=== PATIENT | male | born 1935 | race Caucasian/White ===

== ENCOUNTER 2017-01-02 22:48 | Inpatient (IN) | payer OTHER ==
[~2017-01-02] VITALS: Ht 175.3 cm; Wt 120.0 kg
[~2017-01-02 22:48] MED LIST: ALLO100T PO; APR25 PO; ASPI81TA28 PO; CHOL100010 PO; CLON0.3D4 TD; DOXA2TAB PO; FOLI1TAB7 PO; FURO40TA3 PO; INSDGIPEN SC; IPRA1AER2 INH; LPT/40 PO; METO100T7 PO; PARI1CAP5 PO; SITA50TA PO
--- NOTE | 2017-01-02 23:16 | EMERGENCY ROOM VISIT NOTE ---
History Report prepared by Sonaliibmontserrat: Lorne Omalley Under the Supervision of: Dr. Henry Collins D.O. First contact with patient: 23:07 Chief Complaint: ILLNESS Stated Complaint: FEVER, DIZZY, SHAKEY History of Present Illness The patient is an 81 year old male who presents to the Emergency Room with complaints of an acute fever that started approximately 3 hours STITCHER UTILITY. The patient was feeling great all day until his symptoms started suddenly, which include fever, chills, and shaking. The patient has also had rhinorrhea recently and was feeling nauseous today which he attributes to indigestion. The patient denies chest pain, coughing, abdominal pain, vomiting, burning with urination, or rashes. He was immunized for flu this year. The patient has a history of pneumonia and kidney disease, as per a family member. He is diabetic and his BSG was 200 when checked after the onset of his symptoms. Source of History: patient, family Onset: 3 hours STITCHER UTILITY Position: other (global) Quality: other (febrile) Timing: other (acute) Associated Symptoms: + chills, + nausea, No abdominal pain, No chest pain, No cough, No rash, No urinary symptoms, No vomiting Review of Systems See HPI for pertinent positives and negatives. A total of ten systems were reviewed and were otherwise negative. Past Medical & Surgical Medical Problems: (1) Chronic kidney disease (2) COPD (chronic obstructive pulmonary disease) (3) DM (diabetes mellitus) (4) HTN (hypertension) Surgical Problems: (1) History of cholecystectomy Family History Patient reports no known family medical history. Social History Smoking Status: Never Smoker Alcohol Use: none Marital Status: Housing Status: lives with family Current/Historical Medications Scheduled Allopurinol (Zyloprim), 100 MG PO BID Aspirin (Aspirin Ec), 81 MG PO DAILY Atorvastatin (Atorvastatin Calcium), 10 MG PO DAILY Calcitriol (Calcitriol), 0.25 MCG PO Q2D Cholecalciferol (Vitamin D3), 1 CAP PO DAILY Clonidine Hcl (Kzyssjmo-Plz-2), 1 PATCH TD WK Doxazosin Mesylate (Cardura), 2 MG PO HS Folic Acid (Folvite), 1 MG PO BID Furosemide (Lasix), 40 MG PO BID Hydralazine HCl (Hydralazine HCl), 50 MG PO TID Insulin Glargine (Lantus Solostar), 20 UNIT SC QAM Metoprolol Succinate (Toprol Xl), 100 MG PO DAILY Sitagliptin Phosphate (Januvia), 50 MG PO DAILY Allergies Coded Allergies: No Known Allergies (Unverified , 01/03/17) Physical Exam Vital Signs Date Time Temp Pulse Resp B/P Pulse Ox O2 Delivery O2 Flow Rate FiO2 01/03/17 00:19 106 20 117/63 93 Room Air 01/02/17 23:45 101 01/02/17 23:44 92 Room Air 01/02/17 22:52 37.6 102 16 154/70 92 Room Air Physical Exam GENERAL: Awake, alert, well-appearing, in no distress HENT: Normocephalic, atraumatic. Oropharynx unremarkable. EYES: Normal conjunctiva. Sclera non-icteric. NECK: Supple. No nuchal rigidity. FROM. No JVD. RESPIRATORY: Clear to auscultation. CARDIAC: Regular rate, normal rhythm. Extremities warm and well perfused. Pulses equal. ABDOMEN: Soft, non-distended. No tenderness to palpation. No rebound or guarding. No masses. RECTAL: Deferred. MUSCULOSKELETAL: Chest examination reveals no tenderness. The back is symmetrical on inspection without obvious abnormality. There is no CVA tenderness to palpation. No joint edema. LOWER EXTREMITIES: Calves are equal size bilaterally and non-tender. No edema. No discoloration. NEURO: Normal sensorium. No sensory or motor deficits noted. SKIN: No rash or jaundice noted. Medical Decision & Procedures ER Provider Diagnostic Interpretation: X ray results as stated below per my interpretation. CHEST ONE VIEW PORTABLE: Slight increased markings bilaterally, no obvious infiltrate or effusion. Laboratory Results 01/02/17 23:30 Red Blood Count 4.68, Mean Corpuscular Volume 98.1, Mean Corpuscular Hemoglobin 34.2, Mean Corpuscular Hemoglobin Concent 34.9, Mean Platelet Volume 10.9, Neutrophils (%) (Auto) 84.5, Lymphocytes (%) (Auto) 8.0, Monocytes (%) (Auto) 6.7, Eosinophils (%) (Auto) 0.3, Basophils (%) (Auto) 0.2, Neutrophils # (Auto) 9.64, Lymphocytes # (Auto) 0.92, Monocytes # (Auto) 0.77, Eosinophils # (Auto) 0.04, Basophils # (Auto) 0.02 01/02/17 23:30 Test 01/02/17 23:05 01/02/17 23:30 01/02/17 23:38 Urine Color YELLOW Urine Appearance CLEAR (CLEAR) Urine pH 5.0 (4.5-7.5) Urine Specific [place] 1.008 (1.000-1.030) Urine Protein NEG (NEG) Urine Glucose (UA) 1+ (NEG) Urine Ketones NEG (NEG) Urine Occult Blood NEG (NEG) Urine Nitrite NEG (NEG) Urine Bilirubin NEG (NEG) Urine Urobilinogen NEG (NEG) Urine Leukocyte Esterase NEG (NEG) White Blood Count 11.43 K/uL (4.8-10.8) Red Blood Count 4.68 M/uL (4.7-6.1) Hemoglobin 16.0 g/dL (14.0-18.0) Hematocrit 45.9 % (42-52) Mean Corpuscular Volume 98.1 fL (80-100) Mean Corpuscular Hemoglobin 34.2 pg (25-34) Mean Corpuscular Hemoglobin Concent 34.9 g/dl (32-36) Platelet Count 131 K/uL (130-400) Mean Platelet Volume 10.9 fL (7.4-10.4) Neutrophils (%) (Auto) 84.5 % Lymphocytes (%) (Auto) 8.0 % Monocytes (%) (Auto) 6.7 % Eosinophils (%) (Auto) 0.3 % Basophils (%) (Auto) 0.2 % Neutrophils # (Auto) 9.64 K/uL (1.4-6.5) Lymphocytes # (Auto) 0.92 K/uL (1.2-3.4) Monocytes # (Auto) 0.77 K/uL (0.11-0.59) Eosinophils # (Auto) 0.04 K/uL (0-0.5) Basophils # (Auto) 0.02 K/uL (0-0.2) RDW Standard Deviation 49.7 fL (36.4-46.3) RDW Coefficient of Variation 14.0 % (11.5-14.5) Immature Granulocyte % (Auto) 0.3 % Immature Granulocyte # (Auto) 0.04 K/uL (0.00-0.02) Anion Gap 10.0 mmol/L (3-11) Est Creatinine Clear Calc Drug Dose 33.1 ml/min Estimated GFR () 31.2 Estimated GFR (Non- 26.9 BUN/Creatinine Ratio 18.4 (10-20) Calcium Level 9.1 mg/dl (8.5-10.1) Total Bilirubin 0.8 mg/dl (0.2-1) Direct Bilirubin 0.2 mg/dl (0-0.2) Aspartate Amino Transf (AST/SGOT) 17 U/L (15-37) Alanine Aminotransferase (ALT/SGPT) 33 U/L (12-78) Alkaline Phosphatase 92 U/L (45-117) Total Protein 7.5 gm/dl (6.4-8.2) Albumin 3.7 gm/dl (3.4-5.0) Bedside Lactic Acid Venous 1.83 mmol/L (0.90-1.70) Laboratory results reviewed by me Medications Administered Medications (Trade) Dose Ordered Sig/Chio Route Start Time Stop Time Status Last Admin Dose Admin Ceftriaxone Sodium (Rocephin Inj) 1 gm NOW STAT IV 01/03/17 00:44 01/03/17 00:46 DC 01/03/17 00:54 1 GM ECG Indication: other Rate (beats per minute): 100 Rhythm: normal sinus Findings: RBBB, no acute ischemic change, other (normal axis) ED Course 2306: The patient was evaluated in room A10. A complete history and physical exam was performed. 0040: Reassessed the patient. Discussed the findings with her. 0044: Rocephin 1 gm IV. 0045: Azithromycin 500 mg / dextrose 255 ml @ 125 mls/hr. 0056: Discussed the case with Jaye Granados Hospitalist. The patient will be evaluated. Medical Decision Etiologies such as viral syndrome, otitis, pharyngitis, pneumonia, urinary tract infection, sepsis, bacteremia, meningitis, as well as others were entertained. Patient on reexamination complaints of weakness he slightly tachycardic with heart rate of 107 his pulse ox is 92%. I suspect that he may have early pneumonia there is a slight increased right lower lobe infiltrate. I have sent blood cultures I have started him on Rocephin and Zithromax. I did speak to the hospitalist for admission and the family + Consults Time Called: 49 Consulting Physician: Rae Granados [facility] Returned Call: [phone]: Discussed the case with Rae Granados [facility]. The patient will be evaluated. Impression Primary Impression: Pneumonia Scribe Attestation The scribe's documentation has been prepared under my direction and personally reviewed by me in its entirety. I confirm that the note above accurately reflects all work, treatment, procedures, and medical decision making performed by me. Departure Information Dispostion Being Evaluated By Hospitalist Referrals Tamar Lam M.D. (PCP) Patient Instructions My [facility] Problem Qualifiers Primary Impression: Pneumonia Pneumonia type: due to unspecified organism Laterality: right Lung location : lower lobe of lung Qualified Codes: J18.1 - Lobar pneumonia, unspecified organism
[2017-01-02 23:20] LABS: URINE APPEARANCE CLEAR (CLEAR); URINE BILIRUBIN NEG (NEG); URINE COLOR YELLOW; URINE NITRITE NEG (NEG); URINE SPECIFIC GRAVITY 1.008 (1.000-1.030); UROBILINOGEN NEG (NEG)
[2017-01-02 23:22] LABS: MANUAL MICROSCOPIC REQUIRED? NO; REVIEW REQ? NO
[2017-01-03 00:02] LABS: BASO % 0.2 %; BASO ABS # 0.02 K/uL (0-0.2); COMPLETE YES; EOS % 0.3 %; HEMATOCRIT 45.9 % (42-52); IG% 0.3 %; LYMPH ABS # 0.92 K/uL (1.2-3.4); MEAN CELL VOLUME 98.1 fL (80-100); MEAN CORPUSCULAR HEMOGLOBIN 34.2 pg (25-34); MEAN CORPUSCULAR HGB CONC 34.9 g/dl (32-36); MEAN PLATELET VOLUME 10.9 fL (7.4-10.4); MONO % 6.7 %; NEUT % 84.5 %; PLATELET COUNT 131 K/uL (130-400); RED BLOOD COUNT 4.68 M/uL (4.7-6.1); WHITE BLOOD COUNT 11.43 K/uL (4.8-10.8)
[2017-01-03] MEDS ORDERED: CHOL2000 PO (00:11)
[2017-01-03] MEDS ORDERED: CALC1CAP36 PO (00:12)
[2017-01-03] MEDS ORDERED: LPT10 PO (00:12)
[2017-01-03] MEDS ORDERED: APR50 PO (00:15)
[2017-01-03 00:23] LABS: BUN/CREATININE RATIO 18.4 (10-20); CALCIUM 9.1 mg/dl (8.5-10.1); CREATININE 2.2 mg/dl (0.60-1.40)
[2017-01-03] MEDS ORDERED: CEFTRIAXONE SOD INJ 1 GM ADDVIAL IV STA (00:44)
[2017-01-03] MEDS ORDERED: AZITHROMYCIN IV 500 MG in DEXTROSE 5% 250ML 250 ML IV ONE (00:45)
[2017-01-03] MEDS ORDERED: ONDANSETRON INJ 2 MG/ML 2 ML VIAL IV PRN (01:30)
[2017-01-03] MEDS ORDERED: ACETAMINOPHEN 325 MG TAB PO PRN (01:30)
[2017-01-03] MEDS ORDERED: IV FLUIDS COMPLETED PRN (01:45)
[2017-01-03 02:37] VITALS: BP 141/67; PULSE 110; TEMP 37.9; O2SAT 93; Ht 175.3 cm; Wt 120.0 kg
[2017-01-03] MEDS: SODIUM CHLORIDE 0.9% 1000ML 1,000 ML IV SCH ×2 (03:08→11:22)
--- NOTE | 2017-01-03 03:22 | HISTORY & PHYSICAL EXAMINATION ---
DATE OF ADMISSION: 01/02/2017 PRIMARY CARE PHYSICIAN: Dr. Lam. CHIEF COMPLAINT: Sudden shaking chills with dizziness and sweating. HISTORY OF PRESENT COMPLAINT: He is an 81-year-old male with significant past medical history including chronic kidney disease, diastolic CHF, hyperlipidemia, hypertension, type 2 diabetes and also mild aortic stenosis, apparently has been complaining of sudden onset of chills with feeling of hot and dizziness, started around 7:00-7:30 this evening. He denies to have any cough, any increasing shortness of breath before that. He does not have any abdominal pain, nausea or vomiting, does not have any problem with urine and/or bowel habit. With the onset of the symptoms of dizziness and increased chills and shakiness, he mentioned that he has not been feeling well since then but no other symptoms. No headache, no blurred vision, no numbness or tingling in the extremities and does not have any weakness involving any side of the body. PAST MEDICAL HISTORY: Significant for chronic kidney disease, history of diastolic CHF, hypertension, hyperlipidemia, type 2 diabetes and mild aortic stenosis. PAST SURGICAL HISTORY: Significant for cataract surgery but no other significant surgery. FAMILY HISTORY: Nothing significant. SOCIAL HISTORY: He is . He quit smoking on 10/24/1987. He does not use any alcohol. He lives with his . ALLERGIES: NKDA. MEDICATIONS: As an outpatient, he has been on furosemide 40 mg twice daily, Januvia 50 mg daily, allopurinol 100 mg b.i.d., aspirin 81 mg daily, atorvastatin 10 mg daily, calcitriol 0.25 mcg daily, vitamin D3 2000 units daily, clonidine patch 0.3 mg 1 patch every week, doxazosin 2 mg at night, folic acid 1 mg daily, hydralazine 50 mg t.i.d., insulin Lantus 20 units subQ in the morning and metoprolol succinate 100 mg daily. REVIEW OF SYSTEMS: Other systemic review unremarkable except mentioned in H\T\P. PHYSICAL EXAMINATION: GENERAL: On examination in the Emergency Room, he was feeling very hot and shaky, otherwise in no distress. VITAL SIGNS: Temperature 37.6, pulse of 102, blood pressure 117/63, saturation 92% on room air. HEENT: Unremarkable. NECK: Supple. No JVD, no bruit. CHEST: Otherwise clear. Probable bronchial breath sounds in the left base. HEART: S1, S2 with 2/6 systolic murmur over the aortic area, radiation to the neck. ABDOMEN: Distended, soft, benign, nontender, no organomegaly. Bowel sounds present. EXTREMITIES: He has chronic edema but nothing changed. CENTRAL NERVOUS SYSTEM: He was alert, awake, oriented x3. No focal sensory and/or motor deficit appreciated. LABORATORY DATA: Noted today, white count was 11.43, H\T\H of 16.0/45.9, platelet was 131. Sodium 141, potassium 4.0, chloride 102, carbon dioxide 29, BUN 41, creatinine 2.2, random glucose 175. LFTs unremarkable. Albumin was 3.7. His creatinine seems to be at baseline. EKG was in sinus rhythm, rate of 100 per minute, normal axis, right bundle branch block with associated ST-T wave changes. Compared with prior EKG, no significant change. Chest x-ray did not show any obvious infiltration but may have developing left basilar infiltrate. IMPRESSION AND PLAN: 1. Sudden onset of fever with chills, may have pneumonia. White count is borderline high. The patient will be admitted to medical floor on observation. Blood culture, urine culture have been taken and he was started with intravenous ceftriaxone and azithromycin. We will continue that for the time being. We will give small amount of IV fluid. 2. Diabetes type 2. He has been on Januvia and insulin. We will hold the Januvia and put him on sliding scale coverage and check hemoglobin A1c. 3. Hypertension. Blood pressure seems to be stable at this time. Continue current medications for the blood pressure. 4. Hyperlipidemia. Continue with atorvastatin. 5. Mild aortic stenosis. No evidence of any acute symptoms at this time. Again, cautious amount of IV fluid for now. 6. Chronic kidney disease. The creatinine seems to be stable. We will hold his Lasix and again give a small amount of IV fluid. He may have mild dehydration. 7. Deep venous thrombosis prophylaxis with subQ heparin. 8. Gastrointestinal prophylaxis with Protonix. 9. Code status. Discussed with the patient and family members. He will be level 3, that is resuscitation without mechanical ventilation. 10. In my clinical judgment, the beneficiary meets criteria as per CMS for 2-midnight stay in the hospital. VIVIANA
--- NOTE | 2017-01-03 06:24 | DIAGNOSTIC IMAGING REPORT ---
CHEST ONE VIEW PORTABLE CLINICAL HISTORY: Evaluate Fever/Sepsis fever COMPARISON STUDY: 01/13/2015 FINDINGS: Mild pulmonary vascular congestion. Mild cardiomegaly. Diaphragms smooth. There are no focal infiltrates. IMPRESSION: Pulmonary venous congestion. Electronically signed by: Lavon Gupta M.D. 01/03/2017 6:23 AM Dictated Date/Time: 01/03/2017 6:23 AM
[2017-01-03 07:10] LABS: INR 1.1 (0.9-1.1); PROTHROMBIN TIME (PATIENT) 11.3 SECONDS (9.0-12.0)
[2017-01-03 07:20] VITALS: BP 120/67; PULSE 88; TEMP 37.4; O2SAT 94
[2017-01-03 08:00] VITALS: O2SAT 94
[2017-01-03] MEDS: CHECK CLONIDINE PATCH PLACEMENT SCH ×3 (08:12→22:54)
[2017-01-03] MEDS: ATORVASTATIN 10 MG TAB PO SCH (08:14)
[2017-01-03] MEDS: METOPROLOL SUCC 50MG EXT REL TAB PO SCH (08:14)
[2017-01-03] MEDS: CHOLECALCIFEROL 1000 INTER.UNIT TAB PO SCH (08:14)
[2017-01-03] MEDS: ASPIRIN 81 MG ECTAB PO SCH (08:14)
[2017-01-03] MEDS: ALLOPURINOL 100 MG TAB PO SCH ×2 (08:14→21:41)
[2017-01-03] MEDS: INSULIN GLARGINE SOLOSTAR 100 UNITS/ML 3 ML PEN SC SCH (08:17)
[2017-01-03] MEDS: HEPARIN SOD 5000 UNIT/0.5 ML CARP SQ SCH ×3 (08:18→21:40)
[2017-01-03] MEDS ORDERED: VANCOMYCIN CONSULT ACTIVE PRN (14:55)
--- NOTE | 2017-01-03 14:57 | Progress Note ---
Progress Note Date of Service Jan 03, 2017. Progress Note Patient was seen and evaluated today. Admitted in AM for an episode of chills, subjective fever yesterday around 4 pm. No associated symptoms- no chest pain, SOB, cough, abd pain, nausea, vomiting, diarrhea, leg swelling, headaches. No lines in situ, no foreign bodies. No flu like symptoms. Today, feels good and no symptoms On exam, AAOX3; No distress, Lungs- clear, Heart- S1, S2 normal, Systolic murmur +, Abdomen- soft, non tender, non distended, BS present, Ext- no edema Low grade fever 37.9 C, HR 100s, Labs - WBC 11k CXR - no focal infiltrates, UA- neg, no recent hospitalizations; blood cx x 2 just came back positive for GPC A/P: Bacteremia (Gm positive cocci)- Unclear source. Asymptomatic. No symptoms other than chills x 1 yesterday evening. -On basis of detailed H & P and imaging- no source identified -Has murmur--> will order Echocardiogram to look for vegetation, but no risk factors for endocarditis identified -Discontinue IV Rocephin/Azithromycin as clearly no signs/symptoms of pneumonia and cxr- no focal infiltrate. -Will start on IV Vancomycin -Repeat Blood cx in 1-2 days Discussed with , niece by bedside,
[2017-01-03] MEDS ORDERED: VANCOMYCIN INJ 2,700 MG in SODIUM CHLORIDE 0.9% 500ML 500 ML IV ONE (15:30)
[2017-01-03 15:56] VITALS: BP 134/71; PULSE 82; TEMP 36.8; O2SAT 94
[2017-01-03 16:00] VITALS: O2SAT 96
--- NOTE | 2017-01-03 16:09 | Pharmacy Progress Note ---
Pharmacy Antibiotic Consult Date of Service: Jan 03, 2017. Pharmacy Dosing Scope Pharmacy is consulted to initiate Vanco IV dosing therapy, order appropriate labs and adjust drug dose/frequency. Subjective The patient is a 81 year old male admitted on Jan 03, 2017 at 06:20. Objective Height (Feet): 5 Height (Inches): 9.00 Weight (Kilograms): 120.000 Lab Results (24hrs): Item Value Date Time Creatinine 2.20 mg/dl H 01/02/172329 Est Creatinine Clear Calc Drug Dose 33.1 ml/min 01/02/172329 Laboratory Tests Test 01/02/17 23:30 01/03/17 15:05 BUN/Creatinine Ratio 18.4 Blood Urea Nitrogen 41 mg/dl Creatinine 2.20 mg/dl White Blood Count 11.43 K/uL Red Blood Count 4.68 M/uL Hemoglobin 16.0 g/dL Hematocrit 45.9 % Mean Corpuscular Volume 98.1 fL Mean Corpuscular Hemoglobin 34.2 pg Mean Corpuscular Hemoglobin Concent 34.9 g/dl Platelet Count 131 K/uL Mean Platelet Volume 10.9 fL Neutrophils (%) (Auto) 84.5 % Lymphocytes (%) (Auto) 8.0 % Monocytes (%) (Auto) 6.7 % Eosinophils (%) (Auto) 0.3 % Basophils (%) (Auto) 0.2 % Neutrophils # (Auto) 9.64 K/uL Lymphocytes # (Auto) 0.92 K/uL Monocytes # (Auto) 0.77 K/uL Eosinophils # (Auto) 0.04 K/uL Basophils # (Auto) 0.02 K/uL Micro Results: RUN DATE: 01/03/17 [facility] LAB PAGE 1 RUN TIME: 1353 Specimen Inquiry PATIENT: BERTHA DANIELS LOC: [id number] U # : [id number] AGE/SX: 81/M ROOM: [facility] REG : 01/03/[address]: Pooja. [place] S : 1935 BED: 2 DIS : STATUS: ADM IN TLOC: SPEC #: [id number] JAMES: 01/02/17 STATUS: RES REQ #: [id number] RECD: 01/02/[address]: Henry Collins DO SOURCE: BLOOD ENTR: 01/02/17-23[address] [facility] [address]: Tamar Lam M.D. SPDC: ORDERED: BLOOD CULTURE COMMENTS: Comments to Special Needs Nanny SAME TIME DIFFERENT SITES Procedure Result Verified Site BLD CULT Preliminary 01/03/17-1353 Organism 1 GRAM POSITIVE COCCI SENS SENSITIVITIES DEPENDENT ON FURTHER IDENTIFICATION Phoned Positive Blood Culture Gram Stain Report to LYDIA LAURENT on 01/03/17 At 1252 By SLOANE. Results were verbalized back to SLOANE. Item Value Date Time Blood Culture - Preliminary Resulted 01/02/17 2340 Blood Gram Positive Cocci Blood Culture - Preliminary Resulted 01/02/17 2330 Blood Gram Positive Cocci Recent Pertinent Medications Pt was recently on Rocephin and IV Azithromycin Assessment & Plan Pt is an 81yo M being switched from IV Azithromycin/Rocephin to IV Vanco for 2/ 2 BC's growing Gram(+) cocci. With susceptibilities pending. Pt has a PMH positive for CKD, DM-II, and aortic stenosis. Pt p/w 4/4 SIRS criteria. Pt is still febrile w/ CBC pending. HR/RR WNL today. Currently, Pt has only one major Modified Jerez Criteria risk factor for endocarditis (positive blood cx's for potential typical organisms) and two minor (predisposing heart condition and Temp > 38C). Vanco * Loading dose: Vanco 2700mg (22.5mg/kg) IV X 1 dose at 1530 then: * Vanco 1750mg (~15mg/kg) IV every 24 hours. Set to start 01/04 at 0800. At this point in time, I feel comfortable dosing him slightly aggressively due to the potential for endocarditis and him having confirmed bacteremia. * Goal trough level estimate: between 15 - 20 mcg/mL, appropriate for confirmed bacteremia. * Trough level has been ordered for: prior to the third MD. Thank you for consulting the pharmacy kinetic team and including us in the care of Mr. Daniels Pharmacy will continue to follow and will adjust dose/frequency as necessary. Thank you
[2017-01-03 16:10] LABS: CREATININE 2.3 mg/dl (0.60-1.40)
[2017-01-03] MEDS ORDERED: VANCOMYCIN INJ 1,000 MG in SODIUM CHLORIDE 0.9% 250ML 250 ML IV SCH (21:00)
[2017-01-03] MEDS: DOXAZosin MESYLATE TAB 2 MG TAB PO SCH ×2 (21:42→22:54)
[2017-01-04 00:29] VITALS: BP 114/66; PULSE 82; TEMP 36.8; O2SAT 94
[2017-01-04] MEDS ORDERED: CEFTRIAXONE SOD INJ 1,000 MG in DEXTROSE 5% 50ML 50 ML IV SCH (06:00)
[2017-01-04] MEDS: HEPARIN SOD 5000 UNIT/0.5 ML CARP SQ SCH ×3 (06:06→21:30)
[2017-01-04 07:05] LABS: HEMATOCRIT 39.5 % (42-52); MEAN CELL VOLUME 97.1 fL (80-100); MEAN CORPUSCULAR HEMOGLOBIN 32.9 pg (25-34); MEAN CORPUSCULAR HGB CONC 33.9 g/dl (32-36); MEAN PLATELET VOLUME 10.6 fL (7.4-10.4); PLATELET COUNT 113 K/uL (130-400); RED BLOOD COUNT 4.07 M/uL (4.7-6.1); WHITE BLOOD COUNT 8.94 K/uL (4.8-10.8)
[2017-01-04 07:14] VITALS: BP 145/69; PULSE 71; TEMP 36.7; O2SAT 94
[2017-01-04 07:34] LABS: BUN/CREATININE RATIO 21.2 (10-20); CALCIUM 8.2 mg/dl (8.5-10.1); CREATININE 1.9 mg/dl (0.60-1.40)
[2017-01-04] MEDS ORDERED: AZITHROMYCIN IV 500 MG in DEXTROSE 5% 250ML 250 ML IV SCH (08:00)
[2017-01-04] MEDS ORDERED: VANCOMYCIN INJ 1,600 MG in SODIUM CHLORIDE 0.9% 500ML 500 ML IV SCH (08:00)
[2017-01-04] MEDS: CHECK CLONIDINE PATCH PLACEMENT SCH ×3 (08:00→23:58)
[2017-01-04] MEDS: ALLOPURINOL 100 MG TAB PO SCH ×2 (08:40→20:34)
[2017-01-04] MEDS: ASPIRIN 81 MG ECTAB PO SCH (08:40)
[2017-01-04] MEDS: CHOLECALCIFEROL 1000 INTER.UNIT TAB PO SCH (08:40)
[2017-01-04] MEDS: ATORVASTATIN 10 MG TAB PO SCH (08:41)
[2017-01-04] MEDS: METOPROLOL SUCC 50MG EXT REL TAB PO SCH (08:41)
[2017-01-04] MEDS: INSULIN GLARGINE SOLOSTAR 100 UNITS/ML 3 ML PEN SC SCH (08:42)
[2017-01-04] MEDS ORDERED: CALCITRIOL 0.25 MCG CAP PO SCH (09:00)
[2017-01-04] MEDS: VANCOMYCIN INJ 1,750 MG in SODIUM CHLORIDE 0.9% 500ML 500 ML IV SCH (09:50)
--- NOTE | 2017-01-04 11:35 | ECHOCARDIOGRAM REPORT ---
*NOTICE TO RECEIVING LIBERTARIAN AGENCY This information is strictly Confidential and protected under [place] law. [place] law prohibits you from making any further disclosure of this information unless further disclosure is expressly permitted by the written consent of the person to whom it pertains or is authorized by law. A general authorization for the release of medical or other information is not sufficient for this purpose. Hospital accepts no responsibility if the information is made available to any other person, INCLUDING THE PATIENT. Interpretation Summary * Name: BERTHA DANIELS Study Date: 01/03/2017 03:04 PM BP: 120/67 mmHg * Patient Location: [facility] HR: 88 * : 1935 (M/d/yyyy) Gender: Male Height: 69 in * Age: 81 yrs Ethnicity: CA Weight: 264 lb * Referring Physician: OSMIN * Performed By: Antonette Murguia RDCS * * Reason For Study: BACTEREMIA, LOOK FOR VEGETATIONS * BSA: 2.3 m2 * History: BACTEREMIA - LOOK FOR VEGETATIONS * -- Conclusions -- * No significant change compared to previous study of 01/11/15. * Normal LV chamber size with mild concentric LVH. * Normal LV systolic function, EF 55-60%. * Abnormal septal wall motion consistent with RV pressure/volume overload, otherwise, no segmental left ventricular wall motion abnormalities are noted. * Grade I diastolic dysfunction. * The right ventricular cavity size is enlarged (proximal parasternal long axis right ventricular outflow tract dimension >3.3 cm). * The right ventricular systolic function is normal as assessed by tricuspid annular plane systolic excursion (TAPSE) (normal >1.5 cm). * Moderately calcified aortic valve with mild stenosis. * Moderate to severe mitral annular calcification. * No valvular lesions consistent with endocarditis observed within the scope of this imaging modality. Procedure Details * A complete two-dimensional transthoracic echocardiogram was performed (2D, M-mode, Doppler and color flow Doppler). Left Ventricle * The left ventricle is normal in size. * There is mild concentric left ventricular hypertrophy. * Ejection Fraction = 55-60%. * Left ventricular systolic function is normal. * No segmental left ventricular wall motion abnormalities are noted. * The left ventricular wall motion is normal. Right Ventricle * The right ventricular cavity size is enlarged (proximal parasternal long axis right ventricular outflow tract dimension >3.3 cm). * The right ventricular systolic function is normal as assessed by tricuspid annular plane systolic excursion (TAPSE) (normal >1.5 cm). Atria * The left atrial size is normal. * Right atrial size is normal. * No ASD detected; PFO is not assessed. Mitral Valve * There is moderate to severe mitral annular calcification. * There is no mitral valve stenosis. * There is no mitral regurgitation noted. Tricuspid Valve * The tricuspid valve is normal in structure and function. Aortic Valve * The aortic valve is trileaflet. * Mild valvular aortic stenosis. * There is no significant aortic regurgitation. Pulmonic Valve * The pulmonary valve is not well seen, but the Doppler examination is normal without significant regurgitation or stenosis. Great Vessels * The aortic root is normal size. Pericardium/Pleural * There is no pericardial effusion. Left Ventricular Diastolic Function * Grade I diastolic dysfunction, (abnormal relaxation pattern). MMode 2D Measurements and Calculations IVSd 1.4 cm IVSs 1.9 cm LVIDd 4.6 cm LVIDs 3.2 cm LVPWd 1.6 cm LVPWs 1.4 cm IVS/LVPW 0.91 FS 29.8 % EDV(Teich) 95.2 ml ESV(Teich) 40.9 ml EF(Teich) 57.0 % EDV(cubed) 94.6 ml ESV(cubed) 32.7 ml EF(cubed) 65.4 % % IVS thick 28.5 % % LVPW thick -12.64 % LV mass(C)d 286.0 grams LV mass(C)dI 123.0 grams/m\S\2 LV mass(C)s 195.9 grams LV mass(C)sI 84.3 grams/m\S\2 SV(Teich) 54.3 ml SI(Teich) 23.4 ml/m\S\2 SV(cubed) 61.9 ml SI(cubed) 26.6 ml/m\S\2 LA dimension 3.6 cm LVOT diam 1.9 cm LVOT area 3.0 cm\S\2 LVAd ap4 31.3 cm\S\2 LVLd ap4 8.6 cm EDV(MOD-sp4) 92.3 ml EDV(sp4-el) 96.7 ml LVAs ap4 19.0 cm\S\2 LVLs ap4 7.5 cm ESV(MOD-sp4) 39.5 ml ESV(sp4-el) 40.5 ml EF(MOD-sp4) 57.2 % EF(sp4-el) 58.1 % LVAd ap2 29.2 cm\S\2 LVLd ap2 7.8 cm EDV(MOD-sp2) 94.4 ml EDV(sp2-el) 93.0 ml LVAs ap2 19.2 cm\S\2 LVLs ap2 6.8 cm ESV(MOD-sp2) 48.3 ml ESV(sp2-el) 45.7 ml EF(MOD-sp2) 48.9 % EF(sp2-el) 50.8 % LVLd %diff -10.25 % EDV(MOD-bp) 98.0 ml LVLs %diff -10.55 % ESV(MOD-bp) 45.3 ml EF(MOD-bp) 53.8 % SV(MOD-sp4) 52.8 ml SI(MOD-sp4) 22.7 ml/m\S\2 SV(MOD-sp2) 46.2 ml SI(MOD-sp2) 19.9 ml/m\S\2 SV(MOD-bp) 52.8 ml SI(MOD-bp) 22.7 ml/m\S\2 SV(sp4-el) 56.2 ml SI(sp4-el) 24.2 ml/m\S\2 SV(sp2-el) 47.3 ml SI(sp2-el) 20.3 ml/m\S\2 Doppler Measurements and Calculations MV E max augusto 134.0 cm/sec MV A max augusto 154.2 cm/sec MV E/A 0.87 MV dec time 0.23 sec Ao V2 max 267.4 cm/sec Ao max PG 28.6 mmHg Ao max PG (full) 25.3 mmHg Ao V2 mean 184.6 cm/sec Ao mean PG 15.4 mmHg Ao mean PG (full) 13.3 mmHg Ao V2 VTI 64.3 cm LAVERNE(I,A) 10 cm\S\2 LAVERNE(I,D) 10 cm\S\2 LAVERNE(V,A) 1.0 cm\S\2 LAVERNE(V,D) 1.0 cm\S\2 LV V1 max PG 3.3 mmHg LV V1 mean PG 2.1 mmHg LV V1 max 90.8 cm/sec LV V1 mean 69.5 cm/sec LV V1 VTI 21.8 cm SV(LVOT) 64.3 ml SI(LVOT) 27.7 ml/m\S\2 TR max augusto 254.5 cm/sec
[2017-01-04 16:00] VITALS: O2SAT 94
[2017-01-04 16:10] VITALS: BP 127/53; PULSE 80; TEMP 36.9; O2SAT 94
[2017-01-04] MEDS ORDERED: DEXTROSE 50% 50 ML SYR IV PRN (17:15)
[2017-01-04] MEDS ORDERED: GLUCAGON FOR INJ 1 MG VIAL SQ PRN (17:15)
[2017-01-04] MEDS ORDERED: GLUCOSE 40% GEL 15 GM TUBE PO PRN (17:15)
[2017-01-04] MEDS ORDERED: GLUCOSE 10 TABS/TUBE PO PRN (17:15)
--- NOTE | 2017-01-04 17:28 | Progress Note ---
Medicine Progress Note Date & Time of Visit: Jan 04, 2017 at 17:15. Subjective patient states he feels improved today denies fever/chills, weakness, headache, nausea denies cough, sputum, dyspnea, abdominal pain, changes with urination or bowel movement denies other symptoms Objective Last 8 Hrs Date Time Temp Pulse Resp B/P Pulse Ox O2 Delivery O2 Flow Rate FiO2 01/04/17 16:10 36.9 80 18 127/53 94 Room Air Physical Exam: General- oriented x 3, not in distress, speaks in sentences with no effort Head- atraumatic Eyes- anicteric Neck- supple, no JVD Lungs- clear to auscultation bilaterally, no rales/wheezes Heart- normal rate, regular rhythm; grade 2-3/6 holosystolic murmur Abdomen- normal bowel sounds, soft, nontender Extremities- no pretibial edema, no calf tenderness Neuro- alert, oriented x 3; no gross focal deficits Skin- warm & dry Laboratory Results: Last 24 Hours Test 01/04/17 06:24 01/04/17 07:03 01/04/17 11:10 White Blood Count 8.94 K/uL Red Blood Count 4.07 M/uL Hemoglobin 13.4 g/dL Hematocrit 39.5 % Mean Corpuscular Volume 97.1 fL Mean Corpuscular Hemoglobin 32.9 pg Mean Corpuscular Hemoglobin Concent 33.9 g/dl RDW Standard Deviation 50.7 fL RDW Coefficient of Variation 14.1 % Platelet Count 113 K/uL Mean Platelet Volume 10.6 fL Sodium Level 140 mmol/L Potassium Level 4.0 mmol/L Chloride Level 104 mmol/L Carbon Dioxide Level 28 mmol/L Anion Gap 8.0 mmol/L Blood Urea Nitrogen 40 mg/dl Creatinine 1.90 mg/dl Est Creatinine Clear Calc Drug Dose 38.3 ml/min Estimated GFR () 37.2 Estimated GFR (Non- 32.1 BUN/Creatinine Ratio 21.2 Random Glucose 105 mg/dl Calcium Level 8.2 mg/dl Bedside Glucose 102 mg/dl 160 mg/dl Date/Time Source Procedure Growth Status 01/04/17 16:48 Blood Blood Culture Pending Dae Batch 01/04/17 16:48 Blood Blood Culture Pending Dae Batch Assessment & Plan IMPRESSION AND PLAN: 1. Group B Strep bacteremia - afebrile, no leukocytosis clinically improved - TTE: no vegetations noted - repeat blood cultures 01/04/17 ordered -- Conclusions -- * No significant change compared to previous study of 01/11/15. * Normal LV chamber size with mild concentric LVH. * Normal LV systolic function, EF 55-60%. * Abnormal septal wall motion consistent with RV pressure/volume overload, otherwise, no segmental left ventricular wall motion abnormalities are noted. * Grade I diastolic dysfunction. * The right ventricular cavity size is enlarged (proximal parasternal long axis right ventricular outflow tract dimension >3.3 cm). * The right ventricular systolic function is normal as assessed by tricuspid annular plane systolic excursion (TAPSE) (normal >1.5 cm). * Moderately calcified aortic valve with mild stenosis. * Moderate to severe mitral annular calcification. -- continue IV Vancomycin Day 2 will consult ID 2. Diabetes type 2. - He has been on Januvia and insulin. - on Lantus 20 in AM add [facility] Pharm[facility] consulted 3. Hypertension. - stable 4. Hyperlipidemia. Continue with atorvastatin. 5. Mild aortic stenosis. No evidence of any acute symptoms at this time. Again, cautious amount of IV fluid for now. 6. CHF Diastolic Type Acute on Chronic kidney disease. - baseline crea 1.4 - admitted with crea 2.4--> now improving to 1.9 - no signs of overload gentle IV NSS 7. Deep venous thrombosis prophylaxis - with subQ heparin. 8. Gastrointestinal prophylaxis with Protonix. 9. Code status. Discussed with the patient and family members. He will be level 3, that is resuscitation without mechanical ventilation. Disposition pending anticipate d/c home when medically stable Current Inpatient Medications: Current Inpatient Medications Medications (Trade) Dose Ordered Sig/Chio Route Start Time Stop Time Status Last Admin Dose Admin Heparin Sodium (Porcine) (Heparin Sq 5000 Unit/0.5ml) 5,000 unit Q8 SQ 01/03/17 08:00 02/02/17 07:59 01/04/17 14:14 5,000 UNIT Acetaminophen (Tylenol Tab) 650 mg Q4H PRN PO 01/03/17 01:30 02/02/17 01:29 Ondansetron HCl (Zofran Inj) 4 mg Q6H PRN IV 01/03/17 01:30 02/02/17 01:29 Allopurinol (Zyloprim Tab) 100 mg BID PO 01/03/17 08:00 02/02/17 08:59 01/04/17 08:40 100 MG Aspirin (Ecotrin Tab) 81 mg DAILY PO 01/03/17 08:00 02/02/17 08:59 01/04/17 08:40 81 MG Atorvastatin Calcium (Lipitor Tab) 10 mg DAILY PO 01/03/17 08:00 02/02/17 08:59 01/04/17 08:41 10 MG Calcitriol (Rocaltrol Cap) 0.25 mcg Q2D PO 01/04/17 09:00 02/03/17 08:59 01/04/17 08:41 0.25 MCG Clonidine HCl (Fmdmhwuy-Tok-1 0.3mg/24hr Patch) 1 patch We@0900 TD 01/05/17 09:00 02/04/17 08:59 Doxazosin Mesylate (Cardura Tab) 2 mg HS PO 01/03/17 21:00 02/02/17 20:59 01/03/17 22:54 2 MG Folic Acid (Folvite Tab) 1 mg BID PO 01/03/17 08:00 02/02/17 08:59 01/04/17 08:41 1 MG Hydralazine HCl (Apresoline Tab) 50 mg TID PO 01/03/17 08:00 02/02/17 08:59 01/04/17 14:12 50 MG Insulin Glargine (Lantus Solostar Pen) 20 unit QAM SC 01/03/17 08:00 02/02/17 08:59 01/04/17 08:42 20 UNIT Metoprolol Succinate (Toprol Xl Tab) 100 mg DAILY PO 01/03/17 08:00 02/02/17 08:59 01/04/17 08:41 100 MG Cholecalciferol (Vitamin D Tab) 2,000 inter.unit DAILY PO 01/03/17 08:00 02/02/17 07:59 01/04/17 08:40 2,000 INTER.UNIT Miscellaneous (Remove Clonidine Patch) 1 ea We@0859 N/A 01/05/17 08:59 02/04/17 08:58 Miscellaneous Information (Check Clonidine Patch Placement) 1 ea QS N/A 01/03/17 08:00 02/02/17 07:59 01/04/17 08:00 1 EA Miscellaneous (Iv Fluids Completed) 1 ea PRN PRN N/A 01/03/17 01:45 01/03/18 01:44 Vancomycin HCl 1 ea 1 ea UD PRN N/A 01/03/17 14:55 02/02/17 14:54 Vancomycin HCl/ Sodium Chloride (Vancomycin Inj/ Nss 500ml) 535 ml @ 200 mls/hr DAILY@0800 IV 01/04/17 08:00 01/18/17 07:59 01/04/17 09:50 200 MLS/HR
[2017-01-04] MEDS ORDERED: SODIUM CHLORIDE 0.9% 1000ML 1,000 ML IV SCH (17:30)
[2017-01-04] MEDS ORDERED: PHARMACY GLYCEMIC MGMT CONSULT PRN (17:36)
--- NOTE | 2017-01-04 17:39 | Pharmacy Progress Note ---
Glycemic Control Intl Consult Date of Service Jan 04, 2017. Scope Glycemic Pharmacist consulted by Dr Drew on 01/04/2017 for glycemic control and to write orders per [facility] inpatient glycemic control protocol Objective Weight (Kilograms): 120.000 Accuchecks BSG (last 24hrs): Test 01/04/17 06:24 01/04/17 07:03 01/04/17 11:10 01/04/17 17:22 Random Glucose 105 mg/dl (70-99) Bedside Glucose 102 mg/dl (70-99) 160 mg/dl (70-99) 115 mg/dl (70-99) Laboratory Data (last 24hrs) Test 01/04/17 06:24 Anion Gap 8.0 mmol/L BUN/Creatinine Ratio 21.2 Blood Urea Nitrogen 40 mg/dl Creatinine 1.90 mg/dl Potassium Level 4.0 mmol/L Sodium Level 140 mmol/L White Blood Count 8.94 K/uL Recent Pertinent Medications Outpatient Anti-diabetic Regimen: * Lantus 20 units in AM + Januvia 50 mg Po daily * A1c = 6.3 % 07/30/2016 The patient is currently receiving: * Basal insulin: Lantus 20 units every 24 hours Risk Factors for Insulin Resistance: * Steroids: * Infection: group B beta strep in blood * Pressors: * IVF: * Recent Surgery * Diet: heart healthy -- later will change to diabetic diet * Mechanical Ventilation: Assessment & Plan ASSESSMENT: * ADA & AACE recommend a goal blood sugar range 140-180 mg/dl for the majority of critically ill & non-critically ill patients. However, more stringent targets may be selected in individual cases. PLAN FOR INPATIENT GLYCEMIC CONTROL: * Holding outpatient oral diabetes medications * Basal insulin with LANTUS 20 units SQ * Correctional Insulin with NOVOLOG per scale ACHS * Goal Range: Low 140 mg/dL - High 180 mg/dL * Correction Factor: 25 mg/dL/unit * Nutritional / Prandial insulin per carb ratio of 1 unit per 15 grams CHO consumed * Please note that the plan above was derived based on current level of insulin resistance and hospital stress. These recommendations are appropriate for inpatient admission only. Plan of care upon discharge will need to be reassessed to avoid potential outpatient hypo/hyperglycemia. Thank you.
[2017-01-04] MEDS: INSULIN ASPART 100 UNITS/ML 3 ML PEN SC SCH ×2 (18:44→21:29)
[2017-01-04] MEDS: DOXAZosin MESYLATE TAB 2 MG TAB PO SCH (21:27)
[2017-01-05] VITALS (7 sets, daily range): BP systolic 129–176; BP diastolic 73–75; PULSE 80–96; TEMP 37–37.2; O2SAT 94–97
[2017-01-05] MEDS: HEPARIN SOD 5000 UNIT/0.5 ML CARP SQ SCH ×3 (05:38→14:00)
[2017-01-05] MEDS: CHOLECALCIFEROL 1000 INTER.UNIT TAB PO SCH (07:41)
[2017-01-05] MEDS: CHECK CLONIDINE PATCH PLACEMENT SCH ×2 (07:42→16:00)
[2017-01-05] MEDS: ASPIRIN 81 MG ECTAB PO SCH (07:43)
[2017-01-05] MEDS: ALLOPURINOL 100 MG TAB PO SCH (07:43)
[2017-01-05] MEDS: METOPROLOL SUCC 50MG EXT REL TAB PO SCH (07:43)
[2017-01-05] MEDS: ATORVASTATIN 10 MG TAB PO SCH (07:43)
[2017-01-05 07:53] LABS: CREATININE 1.5 mg/dl (0.60-1.40)
[2017-01-05] MEDS: INSULIN GLARGINE SOLOSTAR 100 UNITS/ML 3 ML PEN SC SCH (07:54)
[2017-01-05 08:16] LABS: BASO % 0.1 %; BASO ABS # 0.01 K/uL (0-0.2); COMPLETE YES; EOS % 1.4 %; HEMATOCRIT 38.2 % (42-52); IG% 0.3 %; LYMPH % 25.9 %; LYMPH ABS # 1.83 K/uL (1.2-3.4); MEAN CELL VOLUME 95.3 fL (80-100); MEAN CORPUSCULAR HEMOGLOBIN 32.9 pg (25-34); MEAN CORPUSCULAR HGB CONC 34.6 g/dl (32-36); MEAN PLATELET VOLUME 10.8 fL (7.4-10.4); MONO % 9.3 %; PLATELET COUNT 121 K/uL (130-400); RED BLOOD COUNT 4.01 M/uL (4.7-6.1); WHITE BLOOD COUNT 7.06 K/uL (4.8-10.8)
[2017-01-05 08:21] LABS: BUN/CREATININE RATIO 23.3 (10-20); POTASSIUM 3.7 mmol/L (3.5-5.1)
[2017-01-05] MEDS: VANCOMYCIN INJ 1,750 MG in SODIUM CHLORIDE 0.9% 500ML 500 ML IV SCH (08:27)
[2017-01-05] MEDS: INSULIN ASPART 100 UNITS/ML 3 ML PEN SC SCH ×3 (08:37→16:30)
[2017-01-05 08:43] LABS: ESTIMATED AVERAGE GLUCOSE 137 mg/dl; HA1C FLAG Normal (Normal)
[2017-01-05] MEDS ORDERED: CLONIDINE HCL 0.3 MG/24 HR TRANSDERM SYS TD SCH (09:00)
[2017-01-05] MEDS ORDERED: CEFTRIAXONE SOD INJ 1000 MG in DEXTROSE 5% 50ML IV SCH (10:00)
--- NOTE | 2017-01-05 11:28 | Progress Note ---
Progress Note Date of Service Jan 05, 2017. Progress Note ID Consult Dictated #[id number] A/P: 1. GBS Septicemia 2. fever -resolved 3. Leukocytosis- resolved -Can continue ctx for now, upon d/c would give augmentin to complete 14 day course from first negative blood culture -echo negative, fever resolved, wbc nml -ok for d/c from ID standpoint when medically cleared -thank you
--- NOTE | 2017-01-05 11:53 | INFECT. DISEASE CONSULTATION ---
DATE OF CONSULTATION: 01/05/2017 DATE OF CONSULTATION: 01/05/2017. REQUESTING PHYSICIAN: Dr. Richmond. HISTORY OF PRESENT ILLNESS: This is an 81-year-old gentleman who was admitted to the hospital on the after he had sudden onset of chills and subjective fever on the day of admission. He states he was feeling fine up until then. Since admission to the hospital, he states he has significantly improved. In fact, he is asking to be discharged home on my examination today. He denies any additional episodes of fevers or chills since admission to the hospital. He did have a T-max of 37.9 on the . He has subsequently been afebrile. He was placed initially on vancomycin and he remains on this. As part of his workup, blood cultures were obtained in the Emergency Room and are growing group B strep. Repeat blood cultures from the are pending. This isolate was pansensitive. He is currently transitioned to Rocephin earlier this morning and appears to be tolerating this well. He denies any cough, chest pain, shortness of breath, nausea, vomiting, diarrhea or abdominal pain. He states his appetite is stable. He denies any urinary complaints. He does have a chronic history of lower extremity edema for which he wears compression stockings. He feels this is somewhat worse on this admission because he is not wearing his compression stockings. He denies any ulceration of the skin; however, on exam he does have multiple areas of bruising and small skin tears and dry flaking skin on his lower extremities. He denies any pain in his lower extremities. All remaining review of systems are reviewed and are negative except or as noted above. PAST MEDICAL HISTORY: Significant for chronic kidney disease, CHF, hypertension, hyperlipidemia, type 2 diabetes, aortic stenosis. He states he has had a chronic murmur which has been unchanged. PAST SURGICAL HISTORY: Significant for cataract surgery. FAMILY HISTORY: Noncontributory. SOCIAL HISTORY: Significant for history of tobacco use. He denies any alcohol or drug use. He lives with his . He has no sick contacts. He has no recent travel. ALLERGIES: He has no known drug allergies. CURRENT MEDICATIONS: Include Rocephin, clonidine, insulin, calcitriol, Cardura, subQ heparin, allopurinol, aspirin, Lipitor, folic acid, hydralazine, Lantus, Toprol-XL, vitamin D, Tylenol and Zofran. PHYSICAL EXAMINATION: VITAL SIGNS: He is afebrile, pulse 87, respiratory rate 20, blood pressure is 146/75, oxygen saturation is 94-97% on room air. GENERAL: He is awake, alert and oriented x3. He is out of bed to chair. HEAD, EYES, EARS, NOSE, AND THROAT: Mucous membranes are moist. Extraocular muscles are intact. HEART: Regular. There is a systolic ejection murmur. LUNGS: Clear bilaterally. ABDOMEN: Soft, nontender, nondistended. There is +1 bilateral lower extremity edema. There are also findings of chronic skin changes. LABORATORY STUDIES: CBC today reveals a white blood cell count of 7.0 down from 11.4 on admission, hemoglobin 13.2, hematocrit 38.2, platelets are 121. Chemistry panel reveals a sodium of 141, potassium 2.7, chloride 107, bicarbonate 24, BUN 35, creatinine 1.5 down from 2.2 on admission. Glucose is 111. Urinalysis in the ER was unremarkable. Initial blood cultures are growing pansensitive group B strep. Repeat blood cultures from the are pending. A chest x-ray was done on the and showed venous congestion. An echocardiogram was performed yesterday and did not show any evidence of vegetation. ASSESSMENT AND PLAN: Group B strep septicemia. I suspect likely from underlying skin source, although he has no findings of cellulitis. He currently is on Rocephin and can be continued on this. He will need a 14-day course total from the first negative culture. His cultures from the are pending. He certainly could be transitioned to oral Augmentin to complete a course of antibiotics upon discharge but will be maintained on Rocephin for now. He certainly is stable for discharge from an infectious diseases standpoint when he is otherwise medically clear. There is no evidence of endocarditis on GARO. Thank you for this consultation.
--- NOTE | 2017-01-05 15:37 | Pharmacy Progress Note ---
Glycemic Control: Progress Nt Date of Service Jan 05, 2017. Scope Glycemic Pharmacist consulted by Dr Drew on 01/04/17 for glycemic control and to write orders per [facility] inpatient glycemic control protocol. Objective Accuchecks BSG (last 24hrs): Test 01/04/17 17:22 01/04/17 20:14 01/05/17 06:50 01/05/17 07:51 Bedside Glucose 115 mg/dl (70-99) 183 mg/dl (70-99) 111 mg/dl (70-99) Random Glucose 87 mg/dl (70-99) Test 01/05/17 11:35 Bedside Glucose 149 mg/dl (70-99) Laboratory Data (last 24hrs) Test 01/05/17 06:50 Anion Gap 10.0 mmol/L BUN/Creatinine Ratio 23.3 Blood Urea Nitrogen 35 mg/dl Creatinine 1.50 mg/dl Hemoglobin A1c 6.4 % Potassium Level 3.7 mmol/L Sodium Level 141 mmol/L White Blood Count 7.06 K/uL Red Blood Count 4.01 M/uL Hemoglobin 13.2 g/dL Hematocrit 38.2 % Mean Corpuscular Volume 95.3 fL Mean Corpuscular Hemoglobin 32.9 pg Mean Corpuscular Hemoglobin Concent 34.6 g/dl Platelet Count 121 K/uL Mean Platelet Volume 10.8 fL Neutrophils (%) (Auto) 63.0 % Lymphocytes (%) (Auto) 25.9 % Monocytes (%) (Auto) 9.3 % Eosinophils (%) (Auto) 1.4 % Basophils (%) (Auto) 0.1 % Neutrophils # (Auto) 4.44 K/uL Lymphocytes # (Auto) 1.83 K/uL Monocytes # (Auto) 0.66 K/uL Eosinophils # (Auto) 0.10 K/uL Basophils # (Auto) 0.01 K/uL HbA1c: Test 01/05/17 06:50 Hemoglobin A1c 6.4 % (4.5-5.6) H Recent Pertinent Medications Outpatient Anti-diabetic Regimen: * Lantus 20 units qam, Januvia 50 mg daily * A1c = 6.4 % 01/05/17 The patient is currently receiving: * Basal insulin: Lantus 20 units every am * Correctional Insulin: Novolog Correction per scale ACHS Goal Range: Low 140 mg/dL - High 180 mg/dL Correction Factor: 25 mg/dL/unit * Prandial insulin: Per carb ratio of 1 unit per 15 grams CHO consumed * Oral Agents: none Risk Factors for Insulin Resistance: * Infection: GBBS bacteremia, on Rocephin * IVF: Rocephin mixed in D5W * Diet: AHA renal, fairly good appetite Assessment & Plan ASSESSMENT: * ADA & AACE recommend a goal blood sugar range 140-180 mg/dl for the majority of critically ill & non-critically ill patients. However, more stringent targets may be selected in individual cases. Will decrease to 120-160 for non- ICU, not critically ill patient- still higher than usual to decrease risk of hypoglycemia in elderly patient. * 81 yo type 2 diabetic, received 24 units of insulin on 01/04. BSG's ranged 87- 183 over past 24 hr. A1c of 6.4% may possibly indicate too tight control in an elderly patient with risk of hypoglycemic episodes. Will decrease Lantus a bit and reassess in am. PLAN FOR INPATIENT GLYCEMIC CONTROL: * Decreasing Lantus to 18 units SQ qam, if BSG is less than 100 give 10 units * Continuing correction factor 25 mg/dl/unit * Continuing carb ratio 1 unit per 15 grams CHO consumed * Changing goal range to Low 120 - High 160 mg/dl * Consider changing to type 2 diabetic diet * Please note that the plan above was derived based on current level of insulin resistance and hospital stress. These recommendations are appropriate for inpatient admission only. Plan of care upon discharge will need to be reassessed to avoid potential outpatient hypo/hyperglycemia. Thank you.
--- NOTE | 2017-01-05 16:23 | Progress Note ---
Medicine Progress Note Date & Time of Visit: Jan 05, 2017 at 16:02. Subjective seen sitting up in chair comfortable no fever/chills, cough, dyspnea reports 2 episodes of diarrhea, no abdominal pain, no nausea no other symptoms Objective Last 8 Hrs Date Time Temp Pulse Resp B/P Pulse Ox O2 Delivery O2 Flow Rate FiO2 01/05/17 14:06 92 151/74 01/05/17 10:19 87 146/75 95 Physical Exam: General- oriented x 3, not in distress, speaks in sentences with no effort Eyes- anicteric Neck- no JVD Lungs- clear to auscultation bilaterally, no rales/wheezes Heart- normal rate, regular rhythm; grade 2-3/6 holosystolic murmur Abdomen- normal bowel sounds, soft, nontender Extremities- mild lower leg edema, no pain/warmth/tenderness/erythema, no calf tenderness Neuro- alert, oriented x 3; no gross focal deficits Skin- warm & dry Laboratory Results: Last 24 Hours Test 01/04/17 17:22 01/04/17 20:14 01/05/17 06:50 01/05/17 07:51 Bedside Glucose 115 mg/dl 183 mg/dl 111 mg/dl White Blood Count 7.06 K/uL Red Blood Count 4.01 M/uL Hemoglobin 13.2 g/dL Hematocrit 38.2 % Mean Corpuscular Volume 95.3 fL Mean Corpuscular Hemoglobin 32.9 pg Mean Corpuscular Hemoglobin Concent 34.6 g/dl Platelet Count 121 K/uL Mean Platelet Volume 10.8 fL Neutrophils (%) (Auto) 63.0 % Lymphocytes (%) (Auto) 25.9 % Monocytes (%) (Auto) 9.3 % Eosinophils (%) (Auto) 1.4 % Basophils (%) (Auto) 0.1 % Neutrophils # (Auto) 4.44 K/uL Lymphocytes # (Auto) 1.83 K/uL Monocytes # (Auto) 0.66 K/uL Eosinophils # (Auto) 0.10 K/uL Basophils # (Auto) 0.01 K/uL RDW Standard Deviation 48.2 fL RDW Coefficient of Variation 13.7 % Immature Granulocyte % (Auto) 0.3 % Immature Granulocyte # (Auto) 0.02 K/uL Sodium Level 141 mmol/L Potassium Level 3.7 mmol/L Chloride Level 107 mmol/L Carbon Dioxide Level 24 mmol/L Anion Gap 10.0 mmol/L Blood Urea Nitrogen 35 mg/dl Creatinine 1.50 mg/dl Est Creatinine Clear Calc Drug Dose 48.6 ml/min Estimated GFR () 49.5 Estimated GFR (Non- 42.7 BUN/Creatinine Ratio 23.3 Random Glucose 87 mg/dl Estimated Average Glucose 137 mg/dl Hemoglobin A1c 6.4 % Calcium Level 8.0 mg/dl Test 01/05/17 11:35 01/05/17 15:49 Bedside Glucose 149 mg/dl 145 mg/dl Date/Time Source Procedure Growth Status 01/04/17 17:20 Blood Blood Culture Pending Received 01/04/17 17:15 Blood Blood Culture Pending Received Assessment & Plan 1. Group B Strep bacteremia - afebrile, no leukocytosis clinically improved - no clear source but likely skin - blood cultures 01/02/17: Group B Strep (pansensitive) - repeat blood cultures 01/04/17 ordered - TTE: no vegetations noted -- Conclusions -- * No significant change compared to previous study of 01/11/15. * Normal LV chamber size with mild concentric LVH. * Normal LV systolic function, EF 55-60%. * Abnormal septal wall motion consistent with RV pressure/volume overload, otherwise, no segmental left ventricular wall motion abnormalities are noted. * Grade I diastolic dysfunction. * The right ventricular cavity size is enlarged (proximal parasternal long axis right ventricular outflow tract dimension >3.3 cm). * The right ventricular systolic function is normal as assessed by tricuspid annular plane systolic excursion (TAPSE) (normal >1.5 cm). * Moderately calcified aortic valve with mild stenosis. * Moderate to severe mitral annular calcification. -- received 2 days of Vancomycin IV -- transitioned to Ceftriaxone IV day 1 -- ID Dr. Yoder consulted: recommend Augmentin BID x 14 days ff up with PCP in 1 week ff up with ID in 1-2 weeks 2. Diarrhea - check C diff 2. Diabetes type 2 - on Januvia and insulin. - on Lantus 20 in AM [facility] consulted 3. Hypertension. - stable 4. Hyperlipidemia Continue with atorvastatin. 5. Mild aortic stenosis. - No evidence of any acute symptoms at this time. - echo as noted above 6. CHF Diastolic Type Acute on Chronic kidney disease - likely Pre Renal - baseline crea 1.4 - admitted with crea 2.4--> now improving to 1.5 gentle IV NSS given, Lasix was held - resume Lasix monitor crea as outpatient 7. Deep venous thrombosis prophylaxis - with subQ heparin. 8. Gastrointestinal prophylaxis with Protonix. 9. Code status. Discussed with the patient and family members. He will be level 3, that is resuscitation without mechanical ventilation. Disposition d/c home ff up with PCP in 3-5 days ff up with ID Dr. Yoder in 1-2 weeks Current Inpatient Medications: Current Inpatient Medications Medications (Trade) Dose Ordered Sig/[place] Route Start Time Stop Time Status Last Admin Dose Admin Heparin Sodium (Porcine) (Heparin Sq 5000 Unit/0.5ml) 5,000 unit Q8 SQ 01/03/17 08:00 02/02/17 07:59 01/05/17 05:38 5,000 UNIT Acetaminophen (Tylenol Tab) 650 mg Q4H PRN PO 01/03/17 01:30 02/02/17 01:29 Ondansetron HCl (Zofran Inj) 4 mg Q6H PRN IV 01/03/17 01:30 02/02/17 01:29 Allopurinol (Zyloprim Tab) 100 mg BID PO 01/03/17 08:00 02/02/17 08:59 01/05/17 07:43 100 MG Aspirin (Ecotrin Tab) 81 mg DAILY PO 01/03/17 08:00 02/02/17 08:59 01/05/17 07:43 81 MG Atorvastatin Calcium (Lipitor Tab) 10 mg DAILY PO 01/03/17 08:00 02/02/17 08:59 01/05/17 07:43 10 MG Calcitriol (Rocaltrol Cap) 0.25 mcg Q2D PO 01/04/17 09:00 02/03/17 08:59 01/04/17 08:41 0.25 MCG Clonidine HCl (Cltdhnty-Yzn-1 0.3mg/24hr Patch) 1 patch We@0900 TD 01/05/17 09:00 02/04/17 08:59 01/05/17 07:42 1 PATCH Doxazosin Mesylate (Cardura Tab) 2 mg HS PO 01/03/17 21:00 02/02/17 20:59 01/04/17 21:27 2 MG Folic Acid (Folvite Tab) 1 mg BID PO 01/03/17 08:00 02/02/17 08:59 01/05/17 07:41 1 MG Hydralazine HCl (Apresoline Tab) 50 mg TID PO 01/03/17 08:00 02/02/17 08:59 01/05/17 14:04 50 MG Metoprolol Succinate (Toprol Xl Tab) 100 mg DAILY PO 01/03/17 08:00 02/02/17 08:59 01/05/17 07:43 100 MG Cholecalciferol (Vitamin D Tab) 2,000 inter.unit DAILY PO 01/03/17 08:00 02/02/17 07:59 01/05/17 07:41 2,000 INTER.UNIT Miscellaneous (Remove Clonidine Patch) 1 ea We@0859 N/A 01/05/17 08:59 02/04/17 08:58 01/05/17 07:42 1 EA Miscellaneous Information (Check Clonidine Patch Placement) 1 ea QS N/A 01/03/17 08:00 02/02/17 07:59 01/05/17 07:42 1 EA Miscellaneous (Iv Fluids Completed) 1 ea PRN PRN N/A 01/03/17 01:45 01/03/18 01:44 Insulin Aspart (novoLOG ASPART) SLIDING SCALE If C... ACHS SC 01/04/17 17:45 02/03/17 17:44 01/05/17 13:23 4 UNITS Glucose (Glucose 40% Gel) 15-30 GRAMS 15 GRAMS... UD PRN PO 01/04/17 17:15 02/03/17 17:14 Glucose (Glucose Chew Tab) 4-8 Tablets 4 Tabl... UD PRN PO 01/04/17 17:15 02/03/17 17:14 Dextrose (Dextrose 50% 50ML Syringe) 25-50ML OF 50% DW IV FOR... UD PRN IV 01/04/17 17:15 02/03/17 17:14 Glucagon (Glucagon Inj) 1 mg UD PRN SQ 01/04/17 17:15 02/03/17 17:14 Miscellaneous Information 1 ea 1 ea UD PRN N/A 01/04/17 17:36 02/03/17 17:35 Ceftriaxone Sodium/Dextrose (Rocephin Inj/D5 50ml) 60 ml @ 120 mls/hr DAILY@1000 IV 01/05/17 10:00 01/10/17 09:59 01/05/17 12:32 120 MLS/HR Insulin Glargine (Lantus Solostar Pen) SEE PROTOCOL QAM OR 01/06/17 08:00 02/05/17 07:59
[2017-01-05] MEDS ORDERED: AMOX875T PO (16:34)
[2017-01-05] MEDS ORDERED: LCTX PO (16:34)
[2017-01-05] MEDS ORDERED: FRS/40 PO (16:34)
--- NOTE | 2017-01-05 16:41 | Discharge Instructions ---
Discharge Instructions Date of Service Jan 05, 2017. Admission Reason for Admission: Pneumonia Discharge Discharge Diagnosis / Problem: BLOODSTREAM INFECTION Discharge Goals Goal(s): Diagnostic testing, Therapeutic intervention Activity Recommendations Activity Limitations: as noted below (NO HEAVY EXERTION UNTIL RE-EVALUATED BY PRIMARY CARE PHYSICIAN) . Instructions / Follow-Up Instructions / Follow-Up FOLLOW UP WITH DR. LAMA ON TUESDAY JANUARY 10, 2017 AT 5: 30PM. PLEASE REVIEW YOUR NEW MEDICATION LIST AND FOLLOW INSTRUCTIONS CAREFULLY. CALL YOUR PRIMARY CARE PHYSICIAN OR RETURN TO ER IMMEDIATELY IF WITH RECURRENCE OF SYMPTOMS, FEVER/CHILLS, DIARRHEA, WEAKNESS, CHANGES WITH URINATION, SHORTNESS OF BREATH, INCREASING LEG SWELLING. Call your Primary Care doctor if any of the following symptoms or problems start or get worse: * Shortness of breath or difficulty breathing * Wake up at night short of breath * Chest pain * Cough * Swelling of your hands, feet, or legs * More fatigued or tired with your normal activity * Palpitations - sudden fast heart beats WEIGHT * Weigh yourself every morning after using the bathroom. * Use the same scale. * Wear the same amount of clothing. * Write your weight down on a chart. * Call your Primary Care doctor if you gain more than 2-3 pounds in 1-2 days. MEDICATIONS * Use this discharge instruction sheet for medication instructions. * Take your medications at the time your doctor ordered. * Do not skip a dose of your medicines. * If you miss a dose of medicine, take it as soon as possible, but DO NOT DOUBLE A DOSE. * Read your medicine information when you get home. * Know all of the side effects of your medicine. If in doubt, ask your pharmacist * Call your Primary Care doctor's office if you have any side effects. * Be sure all of your doctors know what medicine and herbs you take (including cold, flu, and herbal medicine). Take the following with you to your follow-up doctor appointments: * Weight Chart * Medication List * List of questions Do not drink excessive alcohol, beer or wine. Current Hospital Diet Patient's current hospital diet: AHA Diet (Heart Healthy), Renal Diet Discharge Diet Recommended Diet: AHA Diet (Heart Healthy), Diabetes Type 2 Diet Pending Studies Studies pending at discharge: yes List of pending studies: REPEAT BLOODWORK - PARTIAL RENAL PROFILE Laboratory Results Hemoglobin A1c Test 01/05/17 06:50 Range/Units Estimated Average Glucose 137 mg/dl Hemoglobin A1c 6.4 H 4.5-5.6 % Medical Emergencies . Who to Call and When: Call 911 or go to the Emergency Room if: * If at any time you feel your situation is an emergency * You have tightness or pain in your chest that does not go away with rest or Nitroglycerin * You are very short of breath even with rest . Non-Emergent Contact Non-Emergency issues call your: Primary Care Provider Call Non-Emergent contact if: you have a fever, you have any medication questions . Past History Medical & Surgical History: (1) COPD exacerbation (2) Hypoxia (3) Pneumonia (4) COPD (chronic obstructive pulmonary disease) (5) DM (diabetes mellitus) (6) HTN (hypertension) (7) Chronic kidney disease . "Provider Documentation" section prepared by Stewart Drew. VTE Core Measure Inpt VTE Proph given/why not?: Unfractionated heparin SQ
--- NOTE | 2017-01-05 16:47 | Discharge Summary ---
Discharge Summary Date of Service Jan 05, 2017. Discharge Summary Admission Date: Jan 03, 2017 at 06:20 Discharge Date: Jan 05, 2017 Discharge Disposition: Home Principal Diagnosis: Group B Strep bacteremia Secondary Diagnoses/Problems: Please refer to hospital course below. Consultations: Infectious Disease Dr. Yoder Pending Studies/Follow-Up: Repeat Partial Renal Profile on follow up; Lasix decreased to 20mg BID from 40mg BID for acute renal failure; Follow up with ID Dr. Mary Yoder in 1- 2 weeks; Please refer to hospital course below. Medication Reconciliation New Medications: Amoxicillin & Pot Clavulanate (Augmentin 875-125 mg) 1 Tab Tab 875 MG PO BID for 14 Days, #28 TABS 0 Refills Furosemide (Lasix) 40 Mg Tab 20 MG PO BID for 30 Days, #30 TAB 1 Refill Lactobacillus Acidophilus (Floranex) 1 Tab Tab 4 TABS PO TID, #168 TABS 0 Refills Continued Medications: Allopurinol (Zyloprim) 100 Mg Tab 100 MG PO BID Aspirin (Aspirin Ec) 81 Mg Tab 81 MG PO DAILY Atorvastatin (Atorvastatin Calcium) 10 Mg Tab 10 MG PO DAILY Calcitriol (Calcitriol) 0.25 Mcg Cap 0.25 MCG PO Q2D Cholecalciferol (Vitamin D3) 2,000 Unit Cap 1 CAP PO DAILY for 90 Days, #90 CAP 3 Refills Clonidine Hcl (Gwkfqfto-Val-7) 0.3 Mg/24 Hr Dis 1 PATCH TD WK Doxazosin Mesylate (Cardura) 2 Mg Tab 2 MG PO HS, TAB Folic Acid (Folvite) 1 Mg Tab 1 MG PO BID Hydralazine HCl (Hydralazine HCl) 50 Mg Tab 50 MG PO TID Insulin Glargine (Lantus Solostar) 100 Unit/Ml Inj 20 UNIT SC QAM for 30 Days, 2 Refills Metoprolol Succinate (Toprol Xl) 100 Mg Tab 100 MG PO DAILY, TAB Sitagliptin Phosphate (Januvia) 50 Mg Tab 50 MG PO DAILY, TAB Discontinued Medications: Furosemide (Lasix) 40 Mg Tab 40 MG PO BID, TAB Admission Information HPI (per Admitting provider): CHIEF COMPLAINT: Sudden shaking chills with dizziness and sweating. HISTORY OF PRESENT COMPLAINT: He is an 81-year-old male with significant past medical history including chronic kidney disease, diastolic CHF, hyperlipidemia, hypertension, type 2 diabetes and also mild aortic stenosis, apparently has been complaining of sudden onset of chills with feeling of hot and dizziness, started around 7:00-7:30 this evening. He denies to have any cough, any increasing shortness of breath before that. He does not have any abdominal pain, nausea or vomiting, does not have any problem with urine and/or bowel habit. With the onset of the symptoms of dizziness and increased chills and shakiness, he mentioned that he has not been feeling well since then but no other symptoms. No headache, no blurred vision, no numbness or tingling in the extremities and does not have any weakness involving any side of the body. Physical Exam (per Admitting): PAST MEDICAL HISTORY: Significant for chronic kidney disease, history of diastolic CHF, hypertension, hyperlipidemia, type 2 diabetes and mild aortic stenosis. GENERAL: On examination in the Emergency Room, he was feeling very hot and shaky, otherwise in no distress. VITAL SIGNS: Temperature 37.6, pulse of 102, blood pressure 117/63, saturation 92% on room air. HEENT: Unremarkable. NECK: Supple. No JVD, no bruit. CHEST: Otherwise clear. Probable bronchial breath sounds in the left base. HEART: S1, S2 with 2/6 systolic murmur over the aortic area, radiation to the neck. ABDOMEN: Distended, soft, benign, nontender, no organomegaly. Bowel sounds present. EXTREMITIES: He has chronic edema but nothing changed. CENTRAL NERVOUS SYSTEM: He was alert, awake, oriented x3. No focal sensory and/or motor deficit appreciated. Hospital Course Group B Strep bacteremia - afebrile, no leukocytosis clinically improved - no clear source but likely skin - blood cultures 01/02/17: Group B Strep (pansensitive) - repeat blood cultures 01/04/17 ordered - TTE: no vegetations noted -- Conclusions -- * No significant change compared to previous study of 01/11/15. * Normal LV chamber size with mild concentric LVH. * Normal LV systolic function, EF 55-60%. * Abnormal septal wall motion consistent with RV pressure/volume overload, otherwise, no segmental left ventricular wall motion abnormalities are noted. * Grade I diastolic dysfunction. * The right ventricular cavity size is enlarged (proximal parasternal long axis right ventricular outflow tract dimension >3.3 cm). * The right ventricular systolic function is normal as assessed by tricuspid annular plane systolic excursion (TAPSE) (normal >1.5 cm). * Moderately calcified aortic valve with mild stenosis. * Moderate to severe mitral annular calcification. -- received 2 days of Vancomycin IV -- transitioned to Ceftriaxone IV day 1 -- ID Dr. Yoder consulted: recommend Augmentin BID x 14 days ff up with PCP in 1 week ff up with ID in 1-2 weeks Diabetes type 2 - on Januvia and insulin. Hypertension. - stable Hyperlipidemia Continue with atorvastatin. Mild aortic stenosis. - No evidence of any acute symptoms at this time. - echo as noted above CHF Diastolic Type Acute on Chronic kidney disease - likely Pre Renal - baseline crea 1.4 - admitted with crea 2.4--> now improving to 1.5 gentle IV NSS given, Lasix was held - decrease Lasix to 20mg BID monitor crea as outpatient Disposition d/c home ff up with PCP in 3-5 days ff up with ID Dr. Yoder in 1-2 weeks Total time spent on discharge = 40 minutes This includes examination of the patient, discharge planning, medication reconciliation, and communication with other providers. Discharge Instructions Discharge Instructions Date of Service Jan 05, 2017. Admission Reason for Admission: Pneumonia Discharge Discharge Diagnosis / Problem: BLOODSTREAM INFECTION Discharge Goals Goal(s): Diagnostic testing, Therapeutic intervention Activity Recommendations Activity Limitations: as noted below (NO HEAVY EXERTION UNTIL RE-EVALUATED BY PRIMARY CARE PHYSICIAN) . Instructions / Follow-Up Instructions / Follow-Up FOLLOW UP WITH DR. LAMA ON TUESDAY JANUARY 10, 2017 AT 5: 30PM. PLEASE REVIEW YOUR NEW MEDICATION LIST AND FOLLOW INSTRUCTIONS CAREFULLY. CALL YOUR PRIMARY CARE PHYSICIAN OR RETURN TO ER IMMEDIATELY IF WITH RECURRENCE OF SYMPTOMS, FEVER/CHILLS, DIARRHEA, WEAKNESS, CHANGES WITH URINATION, SHORTNESS OF BREATH, INCREASING LEG SWELLING. Call your Primary Care doctor if any of the following symptoms or problems start or get worse: * Shortness of breath or difficulty breathing * Wake up at night short of breath * Chest pain * Cough * Swelling of your hands, feet, or legs * More fatigued or tired with your normal activity * Palpitations - sudden fast heart beats WEIGHT * Weigh yourself every morning after using the bathroom. * Use the same scale. * Wear the same amount of clothing. * Write your weight down on a chart. * Call your Primary Care doctor if you gain more than 2-3 pounds in 1-2 days. MEDICATIONS * Use this discharge instruction sheet for medication instructions. * Take your medications at the time your doctor ordered. * Do not skip a dose of your medicines. * If you miss a dose of medicine, take it as soon as possible, but DO NOT DOUBLE A DOSE. * Read your medicine information when you get home. * Know all of the side effects of your medicine. If in doubt, ask your pharmacist * Call your Primary Care doctor's office if you have any side effects. * Be sure all of your doctors know what medicine and herbs you take (including cold, flu, and herbal medicine). Take the following with you to your follow-up doctor appointments: * Weight Chart * Medication List * List of questions Do not drink excessive alcohol, beer or wine. Current Hospital Diet Patient's current hospital diet: AHA Diet (Heart Healthy), Renal Diet Discharge Diet Recommended Diet: AHA Diet (Heart Healthy), Diabetes Type 2 Diet Pending Studies Studies pending at discharge: yes List of pending studies: REPEAT BLOODWORK - PARTIAL RENAL PROFILE Laboratory Results Hemoglobin A1c Test 01/05/17 06:50 Range/Units Estimated Average Glucose 137 mg/dl Hemoglobin A1c 6.4 H 4.5-5.6 % Medical Emergencies . Who to Call and When: Call 911 or go to the Emergency Room if: * If at any time you feel your situation is an emergency * You have tightness or pain in your chest that does not go away with rest or Nitroglycerin * You are very short of breath even with rest . Non-Emergent Contact Non-Emergency issues call your: Primary Care Provider Call Non-Emergent contact if: you have a fever, you have any medication questions . Past History Medical & Surgical History: (1) COPD exacerbation (2) Hypoxia (3) Pneumonia (4) COPD (chronic obstructive pulmonary disease) (5) DM (diabetes mellitus) (6) HTN (hypertension) (7) Chronic kidney disease . "Provider Documentation" section prepared by Stewart Drew. VTE Core Measure Inpt VTE Proph given/why not?: Unfractionated heparin SQ
[2017-01-06] MEDS ORDERED: VANCOMYCIN TROUGH ONE (07:30)
[2017-01-06] MEDS ORDERED: INSULIN GLARGINE SOLOSTAR 100 UNITS/ML 3 ML PEN SC SCH (08:00)
== END 2017-01-05 19:05 | disposition home or self-care (01) | DRG 872 ==
LOC: ENRESERVTM → ENRESERVDT → C.EDB 22:49 → C.MS4W 01-03 01:27 → OBSVTOIN 01-03 06:20
PROVIDERS: ADMIT Internal Medicine; ATTEND Internal Medicine
DX: A41.9 Sepsis, unspecified organism (principal); I13.0 Hypertensive heart and chronic kidney disease with heart failure and stage 1 through stage 4 chronic kidney disease, or unspecified chronic kidney disease; I50.32 Chronic diastolic (congestive) heart failure; N17.9 Acute kidney failure, unspecified; E11.22 Type 2 diabetes mellitus with diabetic chronic kidney disease; I35.0 Nonrheumatic aortic (valve) stenosis; E78.5 Hyperlipidemia, unspecified; Z87.891 Personal history of nicotine dependence; Z79.4 Long term (current) use of insulin; Z79.899 Other long term (current) drug therapy; N18.9 Chronic kidney disease, unspecified